=== PATIENT | female | born 1960 | race Hispanic/Latino ===

== ENCOUNTER 2017-05-31 13:15 | Outpatient (CLI) | payer MEDICARE ==
--- NOTE | 2017-06-01 10:22 | Magnetic Resonance Report ---
BILATERAL BREAST MRI WITHOUT AND WITH CONTRAST: 05/31/17 13:15:0 COMPARISON:Newly diagnosed left breast cancer. Status post ultrasound-guided needle biopsy of the left breast on 05/13/17 with pathologic diagnosis of invasive mammary carcinoma with both ductal and lobular features, grade 2. No lymphovascular invasion or DCIS identified. Lobular carcinoma not identified. TECHNIQUE: Axial 1.0-mm T1 without, axial high resolution 2.0-mm T2 and axial 1.0-mm dynamic Vibrant high-resolution postcontrast T1 fat saturation sequences on a 1.5 Machelle magnet. The examination was performed with an 8 channel dedicated [place] breast coil. Post processing with CAD and subtraction was performed on an [employer] workstation. 20 cc of Multihance was injected without incident for the contrast portion of the exam. Consent was obtained prior to the administration of the contrast. FINDINGS: Right: Mild background parenchymal enhancement. A benign intraparenchymal lymph node is located at 9 o'clock 5.4 cm from the nipple and measures 7.8 x 5.3 x 5.1 mm. It has a central notch and central T2 hyperintensity consistent with a fatty hilum. No mass or suspicious enhancement of the right breast. No suspicious right axillary or right internal mammary lymph nodes. Left: Mild background parenchymal enhancement. The known cancer is an oval irregular central retroareolar mass with spiculation measuring 12.0 x 9.1 x 0.7 mm. It is located approximately 8 cm from the nipple and demonstrates heterogeneous enhancement with mixed kinetics, 115% peak enhancement and 8% type III washout. No other mass or suspicious enhancement of the left breast. No suspicious left axillary or left internal mammary lymph nodes. IMPRESSION: Known 12 mm left breast cancer and no additional suspicious lesion of either breast. No suspicious lymph nodes. RIGHT BI-RADS 2 -- Benign LEFT BI-RADS 6 -- Known Cancer
== END 2017-05-31 13:16 | disposition home or self-care (01) ==
LOC: SPVIMAG 13:15
PROVIDERS: ATTEND Surgery
DX: C50.412 Malignant neoplasm of upper-outer quadrant of left female breast (principal)
CPT/HCPCS: 77059; C8908

== ENCOUNTER 2017-06-22 07:04 | Day surgery (SDC) | payer MEDICARE ==
[~2017-06-22 07:04] MED LIST: WATER FOR IRRIG STERILE IR ONE
[2017-06-22] MEDS ORDERED: XYLOCAINE 1% 20 mL ONE (07:17)
[2017-06-22] MEDS ORDERED: ANCEF/STERILE WATER 2 GM/20 ML IV NR (08:00)
[2017-06-22] MEDS ORDERED: XYLOCAINE 1% 20 mL INFILTRATI NR (08:29)
--- NOTE | 2017-06-22 08:55 | Anesthesia Consultation ---
Anesthesia Consult and Med Hx Date of service: 06/22/17 - Airway Anesthetic Teeth Evaluation: Poor ROM Head & Neck: Adequate Mental/Hyoid Distance: Adequate Mallampati Class: Class II Intubation Access Assessment: Probably Good - Pulmonary Exam CTA: Yes - Cardiac Exam Cardiac Exam: RRR - Pre-Operative Health Status ASA Pre-Surgery Classification: ASA4 Proposed Anesthetic Plan: General - Pulmonary Hx Smoking: Yes (8/DAY FOR OVER 30 YEARS) COPD: Yes (Home O2, Chronic hypoxia) - Central Nervous System Hx Back Pain: Yes (L4-L5) Hx Psychiatric Problems: No - Other Systems Hx Alcohol Use: No Hx Substance Use: No Hx Cancer: Yes Hx Obesity: Yes (morbid)
--- NOTE | 2017-06-22 08:55 | Anesthesia Day of Surgery ---
Anesthesia Day of Surgery - Day of Surgery Patient Examined: Yes Patient H&P Reviewed: Yes Patient is NPO: Yes Pulmonary Clearance: Yes
[2017-06-22] MEDS ORDERED: MORPHINE IV PRN (08:56)
[2017-06-22] MEDS ORDERED: PERCOCET 5/325 PO PRN (08:56)
[2017-06-22] MEDS ORDERED: ZOFRAN IV PRN (08:56)
[2017-06-22] MEDS ORDERED: PEPCID IV NR (09:00)
[2017-06-22] MEDS ORDERED: NACL 0.9% 1000 ML 1,000 ML IV SCH (09:00)
[2017-06-22] MEDS ORDERED: VERSED IV NR (09:00)
[2017-06-22] MEDS ORDERED: XYLOCAINE MPF 2% ONE (09:20)
[2017-06-22] MEDS ORDERED: DIPRIVAN 10 MG/ML IV ONE (09:20)
[2017-06-22] MEDS ORDERED: DILAUDID ONE (09:20)
[2017-06-22] MEDS ORDERED: DECADRON ONE (09:21)
[2017-06-22] MEDS ORDERED: ZOFRAN ONE (09:21)
[2017-06-22] MEDS ORDERED: MARCAINE 0.25% INFILTRATI ONE ×3 (10:17→10:58)
[2017-06-22] MEDS ORDERED: XYLOCAINE 1% 20 mL INFILTRATI ONE ×2 (10:58)
[2017-06-22] MEDS ORDERED: WATER FOR IRRIG STERILE IR ONE (13:06)
--- NOTE | 2017-06-22 13:27 | Short Stay Summary ---
Short Stay Documentation Date of service: 06/22/17 - History H&P: obtained from office - Allergies and Medications Current Medications: Allergies No Known Allergies Allergy (Verified 06/20/17 17:18) Home Medications Medication Instructions Recorded Confirmed Last Taken Type Albuterol Sulfate [Ventolin Hfa] 1 inhalation INHALATION TID 06/20/17 06/20/17 06/22/17 05:45 History Mometasone/Formoterol [Dulera 200 1 inh INHALATION BID 06/20/17 06/20/17 05:45 History Mcg/5 Mcg Inhaler] Tiotropium [place]y [Spiriva] 18 mcg INHALATION DAILY 06/20/17 06/20/17 06/22/17 05:45 History HYDROcodone/APAP 5-325 [[place] 1 each PO Q6HR PRN #30 tablet 06/22/17 Unknown Rx 5/325] Active Medications Cefazolin Sodium (Ancef/Sterile Water 2 Gm/20 Ml) 2 gm IV PREOP NR Stop: 06/22/17 23:59 Famotidine (Pepcid) 20 mg IV PREOP NR Stop: 06/22/17 23:59 Last Admin: 06/22/17 09:18 Dose: 20 mg Sodium Chloride (Nacl 0.9% 1000 Ml) 1,000 mls @ 75 mls/hr IV DIRECT NATE Last Admin: 06/22/17 09:12 Dose: 75 mls/hr Lidocaine (Xylocaine 1% 20 Ml) 20 ml INFILTRATI ONCE NR Stop: 06/22/17 23:59 Midazolam HCl (Versed) 2 mg IV PREOP NR Stop: 06/22/17 23:59 Last Admin: 06/22/17 09:18 Dose: 2 mg Morphine Sulfate (Morphine) 2 mg IV Q10MIN PRN PRN Reason: Pain, Moderate (4-6) Stop: 06/22/17 18:00 Ondansetron HCl (Zofran) 4 mg IV ONCE PRN PRN Reason: Nausea And Vomiting Stop: 06/22/17 18:00 Oxycodone/Acetaminophen (Percocet 5/325) 1 tab PO ONCE PRN PRN Reason: Pain, Moderate (4-6) Stop: 06/22/17 18:00 - Brief post op/procedure progress note Date of procedure: 06/22/17 Pre-op diagnosis: Left breast cancer of the upper outer quadrant Post-op diagnosis: same Procedure: Left needle localization partial mastectomy with SLNB Anesthesia: GETA Findings: Radiograph specimen with wire and clip present; 5 SLNS Surgeon: USAMA GARCIA Generator Worker: MARISSA WELLER Estimated blood loss: minimal Pathology: list (left partial mastectomy and 5 SLNs) Specimen disposition: to lab Condition: stable - Disposition Condition at discharge: Good Disposition: DC-01 TO HOME OR SELFCARE Short Stay Discharge Plan Activity: other (no heavy lifting) Diet: regular Wound: other (keep incision clean and dry and may shower in 24 hours; no baths, pools or lakes; do not rub or scrub incision) Follow up with: ORA IYER MD [Primary Care Provider] - 7 Days USAMA GARCIA MD [Staff Physician] - 7 Days Prescriptions: HYDROcodone/APAP 5-325 [[place] 5/325] 1 each PO Q6HR PRN #30 tablet PRN Reason: Pain
--- NOTE | 2017-06-22 13:42 | Mammography Report ---
NEEDLE LOCALIZATION AND HOOKWIRE PLACEMENT LEFT BREAST:06/22/17 CLINICAL: Left breast cancer. COMPARISON: 05/13/17 FINDINGS: Using mammographic guidance, 1% lidocaine local anesthesia and sterile technique, a 12.5-cm Palumbo hookwire was placed from a lateral approach to localize a known cancer with a localizer clip. Two views demonstrated satisfactory targeting. The hookwire was deployed and two additional orthogonal images were obtained. The patient tolerated the procedure well and there were no apparent complications. IMPRESSION: Uncomplicated hookwire placement left breast.
--- NOTE | 2017-06-22 13:43 | Mammography Report ---
SPECIMEN RADIOGRAPH LEFT BREAST: 06/22/17 07:04:00 CLINICAL: Surgical excision of a known cancer. FINDINGS: The targeted lesion with a biopsy clip and a hookwire are identified within the specimen. IMPRESSION: Excision of the targeted lesion.
--- NOTE | 2017-06-22 13:48 | Operative Report ---
Operative Report Operative Report: Date of Service: June 22, 2017 Preoperative diagnosis: Left breast cancer of the upper outer quadrant Postoperative diagnosis: Same Procedure: Left needle localization partial mastectomy of the upper outer quadrant and SLNB Surgeon: Ruth Ann Corbett MD Component Inspector: Heather Olguin MD Anesthesia: General Findings: Left wire and clip present within radiograph specimen; 5 SLNs Complications: None EBL: Minimal Disposition: PACU in good condition Indications for operative procedure: This is a 56 year old lady with newly diagnosed left breast cancer of the upper outer quadrant, Stage I [id number] ER/ ND positive. Recommendations are to proceed with breast conservation. Genetic testing pending and patient did not want to await genetic test results prior to surgery. Procedure in detail: The patient was taken to radiology for wire placement for localization known area of cancer. Patient was then taken to the operating room. Gen. anesthesia was administered. The left nipple was injected with radioisotope. The left breast and axilla were prepped and draped in the normal sterile operative fashion. The wire was identified. Timeout was performed. Gamma probe was inserted into the axilla. The area of hot spot was identified. A left axillary incision was made with a 15 blade knife with dissection taken down to the subcutaneous tissues. The axillary fascia was opened with the Bovie cautery. 5 SLNS were identified with 1 lymph node being lower axilla. All remaining counts were less than 10% of the highest count. Lymph nodes were sent to pathology for permanent processing. Hemostasis was obtained in the left axillary cavity. Axillary cavity was appropriately irrigated and suctioned. Hemostasis was noted. Axillary fascia was approximated and closed using interrupted 3-0 Vicryl and the skin brought together and closed using a running 4-0 Monocryl followed by skin affix. Attention was then taken towards the left breast. Lateral breast incision was made with a 15 blade knife and dissection taken down to subcutaneous tissues. First began raising of the lateral flap with removal of the wire from the skin with dissection take down to the pectoralis muscle, followed by raising of the medial flap, superior flap and inferior flap with all flaps taken down to the pectoralis muscle. The breast area of concern was appropriately removed posteriorly from the pectoralis muscle with the aid of the Bovie cautery. The wire was not encountered. Specimen was marked and then sent to pathology and radiology; radiograph speciment with wire, clip and mass present. Breast cavity was irrigated and hemostasis was obtained. The breast cavity was anesthetized with 1% lidocaine mixed with quarter percent Marcaine. The posterior deep breast tissues were approximated and closed using interrupted 3-0 Vicryl. The subcutaneous tissues were approximated and closed using interrupted 3-0 Vicryl followed by closing of the skin with a running 4-0 Monocryl and skin affix. The patient tolerated surgery very well and she was awaken from anesthesia without any complication and transported to PACU in good condition.
[2017-06-22 14:44] VITALS: BP 124/69
--- NOTE | 2017-06-22 15:20 | Post Anesthesia Evaluation ---
- Post Anesthesia Evaluation Patient Participated: Yes Airway Patent: Yes Stable Respiratory Function: Yes Nausea/Vomiting: No Temp > 96.8F: Yes Pain Manageable: Yes Adequeate Hydration: Yes Anesthesia Complications: No
== END 2017-06-22 15:10 | disposition home or self-care (01) ==
LOC: OR 07:04
PROVIDERS: ATTEND Surgery
DX: C50.412 Malignant neoplasm of upper-outer quadrant of left female breast (principal); J44.9 Chronic obstructive pulmonary disease, unspecified; E66.01 Morbid (severe) obesity due to excess calories; F17.210 Nicotine dependence, cigarettes, uncomplicated; Z68.42 Body mass index [BMI] 45.0-49.9, adult; Z99.81 Dependence on supplemental oxygen; Z90.710 Acquired absence of both cervix and uterus; Z98.890 Other specified postprocedural states; Z91.013 Allergy to seafood
CPT/HCPCS: 19281; 19301; 38525; 76098; 78800; 88307; 88333; 88342; A9541; J0690; J1170; J2250; J2405; J2704; J7030; J1100

== ENCOUNTER 2017-09-28 09:49 | Outpatient (CLI) | payer MEDICARE ==
--- NOTE | 2017-09-28 13:30 | Mammography Report ---
BONE DEXA:09/28/17 CLINICAL: Postmenopausal and personal history of left breast cancer. No comparison. TECHNIQUE: Two site bone DEXA performed on an Hologic scanner. FINDINGS: L1 BMD is 0.898g/cm squared with T score = -0.8 and Z score = + 0.4. L2 BMD is 0.880g/cm squared with T score = -1.3 and Z score =0. L3 BMD is 0.849g/cm squared with T score =-2.1 and Z score =-0.7. L4 BMD is 0.916g/cm squared with T score = -1.3 and Z score =+0.1. The average BMD of the lumbar spine L1-L4 is 0.885g/cm squared with T-score = -1.5 and Z-score = -0.1. The average BMD of the left hip is 0.927g/cm squared with a T-score = -0.1 and a Z-score = +0.8. The left femoral neck BMD is 0.685g/cm squared with T score = -1.5 and Z score = 0.2. IMPRESSION: WHO classification: Osteopenia with increased fracture risk based on both lumbar spine and left femoral neck measurements. RECOMMENDATION: Clinical correlation and routine screening. DEFINITIONS: BMD = Bone Mineral Density T-score = BMD related to mean peak bone mass of young adult (mean expressed in Standard Deviation) Z-score = Age matched BMD expressed in SD World Health Organization (WHO) Diagnostic Criteria Normal T-score > -1 SD Osteopenia T-score between -1 and -2.4 SD Osteoporosis T-score -2.5 SD or below NOTE: BMD is not the only risk factor for fracture. One should also consider factors such as the patient's age, risk of falling, previous osteoporotic fracture, family history of osteoporotic fractures, current smoker, and low body weight. Z-scores are not calculated if >80 years of age.
== END 2017-09-28 09:50 | disposition home or self-care (01) ==
LOC: SPVWC 09:49
PROVIDERS: ATTEND Internal Medicine Hematology & Oncology
DX: M85.88 Other specified disorders of bone density and structure, other site (principal); M85.852 Other specified disorders of bone density and structure, left thigh; Z78.0 Asymptomatic menopausal state; Z85.3 Personal history of malignant neoplasm of breast
CPT/HCPCS: 77080

== ENCOUNTER 2017-10-13 10:12 | Outpatient (CLI) | payer MEDICARE ==
--- NOTE | 2017-10-13 11:15 | XRay Report ---
Standing lumbar spine with routine and lateral flexion and extension views: The patient quite large and the penetration is somewhat compromised. There is suspicion the bones are osteopenic. Mild traction spurs are noted from the lower thoracic to the lower lumbar spine. There is a grade 1 anterior L4 subluxation. There does not appear to be significant interbody motion on flexion and extension views. There are degenerative changes with narrowing of the L4-5 apophyseal joints. No evidence of spondylolysis. Impressions: Apparently stable L4 subluxation.
== END 2017-10-13 10:13 | disposition home or self-care (01) ==
LOC: SPVIMAG 10:12
PROVIDERS: ATTEND Physical Medicine & Rehabilitation
DX: S33.140A Subluxation of L4/L5 lumbar vertebra, initial encounter (principal); M47.896 Other spondylosis, lumbar region; M54.16 Radiculopathy, lumbar region; X58.XXXA Exposure to other specified factors, initial encounter; Y93.89 Activity, other specified; Y92.89 Other specified places as the place of occurrence of the external cause; Y99.8 Other external cause status
CPT/HCPCS: 72114

== ENCOUNTER 2018-01-10 10:11 | Outpatient (CLI) | payer MEDICARE ==
--- NOTE | 2018-01-10 11:58 | Mammography Report ---
BILATERAL DIGITAL DIAGNOSTIC MAMMOGRAM with CAD and RIGHT BREAST ULTRASOUND: 01/10/18 10:11:00 CLINICAL: Status post left partial mastectomy 06/22/17. COMPARISON:05/13/17 left mammogram and 09/16/10 bilateral mammogram. FINDINGS: The breasts are mostly fatty.Left upper outer asymmetries correlate with surgical sites. The larger asymmetry is at 1 o'clock approximately 10 cm from the nipple and there appears to be a seroma measuring at least 4 cm. Extensive skin thickening of the left breast is new compared to the prior exam. The skin of the left breast measures approximately 10 mm near the nipple. The right breast is almost entirely fatty. A right lower inner periareolar asymmetry is poorly marginated that persists with spot compression. Targeted ultrasound of the inner right periareolar area was performed and demonstrated an oval smooth solid hypoechoic mass edge of the areola at 1 o'clock. It measures 1.2 x 1.4 x 0.6 cm and correlates with a nonenhancing mass identified on the 05/31/17 MRI. IMPRESSION: Benign posttreatment changes in the left breast and a benign 1.4 cm right periareolar benign fibroadenoma. BI-RADS CATEGORY: 2 - - Benign RECOMMENDATION: Routine mammographic screening in one year. ACR BI-RADS MAMMOGRAPHIC CODES: 0 = Needs additional imaging evaluation; 1 = Negative; 2 = Benign; 3 = Probably benign; 4 = Suspicious; 5 = Malignant; 6 = Known biopsy-proven malignancy COMMENT: 1. Dense breast tissue, i.e., adenosis, fibrocystic changes, etc., may obscure an underlying neoplasm. 2. Approximately 10% of cancers are not detected with mammography. 3. A negative mammography report should not delay biopsy if a clinically suspicious mass is present. COMMENT: Patient follow-up letters are generated by our [employer] application.
== END 2018-01-10 10:12 | disposition home or self-care (01) ==
LOC: SPVWC 10:11
PROVIDERS: ATTEND Surgery
DX: C50.412 Malignant neoplasm of upper-outer quadrant of left female breast (principal); D24.1 Benign neoplasm of right breast; F17.210 Nicotine dependence, cigarettes, uncomplicated; M19.90 Unspecified osteoarthritis, unspecified site; Z90.710 Acquired absence of both cervix and uterus; Z90.12 Acquired absence of left breast and nipple
CPT/HCPCS: 77066

== ENCOUNTER 2019-01-23 09:06 | Outpatient (CLI) | payer MEDICARE ==
--- NOTE | 2019-01-23 09:57 | Mammography Report ---
BILATERAL DIGITAL SCREENING MAMMOGRAM WITH CAD INDICATION: Routine screening mammography. Breast cancer survivor status post left partial mastectomy with radiation therapy. TECHNIQUE: Digital bilateral 2D mammography was obtained in the craniocaudal and mediolateral obliq ue projections. This examination was interpreted with the benefit of Computer-Aided Detection analysi s. COMPARISON: 01/10/2018 FINDINGS: Breast Density: There are scattered areas of fibroglandular density. No mass, architectural distortion or suspicious calcifications. The left upper outer postsurgical sca r is smaller than on the last exam. Moderate skin thickening of the left breast is unchanged. The rig ht breast is negative. IMPRESSION:No mammographic evidence of malignancy. BI-RADS Category 2: Benign. No mammographic evidence of malignancy. Recommend routine screening ma mmography in one year. A "normal" or negative report should not discourage follow up or biopsy of a clinically significant f inding. A written summary of these findings will be mailed to the patient. The patient will be entered into a mammography reporting system which will generate a reminder letter for the patient's next appointmen t at the appropriate interval. The [employer] recommends yearly mammograms starting at age 40 and continuing as l vinicio as a woman is in good health. Breast MRI is recommended for women with an approximate 20-25% or greater lifetime risk of breast cancer, including women with a strong family history of breast or ova yuniel cancer or who have been treated for Hodgkin's disease. Signer Name: Azam Gore MD Signed: 01/23/2019 9:52 AM Workstation Name: [id number]
== END 2019-01-23 09:07 | disposition home or self-care (01) ==
LOC: SPVWC 09:06
PROVIDERS: ATTEND Surgery
DX: Z12.31 Encounter for screening mammogram for malignant neoplasm of breast (principal); J44.9 Chronic obstructive pulmonary disease, unspecified; E66.9 Obesity, unspecified; Z90.89 Acquired absence of other organs
CPT/HCPCS: 77067